=== PATIENT | male | born 1985 | race African-American/Black ===

== ENCOUNTER 2016-07-04 01:08 | Emergency (ER) | payer SELFPAY ==
[~2016-07-04] VITALS: Ht 180.3 cm; Wt 91.0 kg
[~2016-07-04 01:08] MED LIST: BACL10TA PO; DICL75 PO; NAPR550 PO
[2016-07-04 01:19] VITALS: BP 169/88; PULSE 66; RESP 18; TEMP 98.4; O2SAT 98
[2016-07-04] MEDS ORDERED: SODIUM CHLOR 0.9% 1000 ML INJ 1,000 ML IV SCH (01:23)
[2016-07-04] MEDS ORDERED: SODIUM CHLORIDE 0.9% FLUSH 5 ML FLUSH IVF PRN (01:30)
[2016-07-04 01:33] VITALS: O2SAT 99
[2016-07-04 01:54] LABS: BLOOD, URINE NEG (NEG); GLUCOSE,URINE NEG (NEG); KETONE, URINE NEG (NEG); NITRITE,URINE NEG (NEG); PH, URINE 6.5 (5.0-8.5); URINE COLOR COLORLESS (YELLW/STRAW)
[2016-07-04 01:56] LABS: AUTOMATED NEUTROPHIL # 3.1 TH/MM3 (1.8-7.7); BASOPHIL # 0.1 TH/MM3 (0-0.2); EOSINOPHIL # 0.1 TH/MM3 (0-0.4); EOSINOPHIL % 1.7 % (0.0-4.0); HEMO FLAGS DIFF FINAL; LYMPH % 40.1 % (9.0-44.0); LYMPHOCYTE # 2.6 TH/MM3 (1.0-4.8); MEAN CELL VOLUME 86.9 FL (80.0-100.0); MEAN CORPUSCULAR HEMOGLOBIN 29.3 PG (27.0-34.0); MEAN CORPUSCULAR HGB CONC 33.8 % (32.0-36.0); MONO % 9.3 % (0.0-8.0); NEUT % 47.9 % (16.0-70.0); PLATELET COUNT 242 TH/MM3 (150-450); RED BLOOD COUNT 4.37 MIL/MM3 (4.50-5.90); RED CELL DISTRIBUTION WIDTH 14.5 % (11.6-17.2); WHITE BLOOD COUNT 6.4 TH/MM3 (4.0-11.0)
[2016-07-04 02:01] LABS: AMPHETAMINE, URINE NEG (NEG); BARBITURATES, URINE NEG (NEG); COCAINE, URINE NEG (NEG)
[2016-07-04 02:33] LABS: ALKALINE PHOSPHATASE 50 U/L (45-117); ALT (GPT) 20 U/L (12-78); ANION GAP 8 MEQ/L (5-15); AST (GOT) 23 U/L (15-37); BICARBONATE 24.8 MEQ/L (21.0-32.0); BLOOD UREA NITROGEN 9 MG/DL (7-18); CHLORIDE 106 MEQ/L (98-107); CREATINE KINASE 263 U/L (39-308); GLOMERULAR FILTRATION RATE 119 ML/MIN (>89); SODIUM (NA) 139 MEQ/L (136-145); TOTAL BILIRUBIN ADULT 0.3 MG/DL (0.2-1.0)
[2016-07-04 02:37] LABS: POTASSIUM 3.9 MEQ/L (3.5-5.1)
[2016-07-04 02:39] LABS: COMMENT (UR) CULT NOT INDICATED; CULTURE IF INDICATED CULT NOT INDICATED
--- NOTE | 2016-07-04 02:44 | RADRPT ---
EXAM DATE/TIME: 07/04/2016 02:20 [place] COMPARISON: No previous studies available for comparison. INDICATIONS : Altered mental status. RADIATION DOSE: 40.21 CTDIvol (mGy) MEDICAL HISTORY : None SURGICAL HISTORY : None. ENCOUNTER: Initial ACUITY: 1 day PAIN SCALE: 0/10 LOCATION: cranial TECHNIQUE: Multiple contiguous axial images were obtained of the head. Using automated exposure control and adj ustment of the mA and/or kV according to patient size, radiation dose was kept as low as reasonably a chievable to obtain optimal diagnostic quality images. FINDINGS: CEREBRUM: The ventricles are normal for age. No evidence of midline shift, mass lesion, hemorrhage or acute in farction. No extra-axial fluid collections are seen. POSTERIOR FOSSA: The cerebellum and brainstem are intact. The 4th ventricle is midline. The cerebellopontine angle i s unremarkable. EXTRACRANIAL: The visualized portion of the orbits is intact. Subtle areas of nodular mucosal thickening in the ri ght maxillary sinus measure up to 1.2 cm. No air-fluid levels seen. SKULL: The calvaria is intact. No evidence of skull fracture. CONCLUSION: 1. Negative noncontrast CT of the brain. 2. Right maxillary sinus disease. Rigo Muir MD on July 04, 2016 at 2:42 Board Certified Radiologist. This report was verified electronically.
--- NOTE | 2016-07-04 02:56 | PD ---
HPI Chief Complaint: Altered Mental Status Time Seen by Provider: 01:11 Travel History International Travel<30 days: No Contact w/Intl Traveler<30days: No Traveled to known affect area: No History of Present Illness HPI The patient's 31 years old. He works in the mornings at [employer] and in the evenings [employer]. He has been doing this for a few months and has been surviving on a few hours of sleep only per night. While at work tonight which started a few hours prior to ER arrival he spoke very little with other coworkers and according to them was behaving somewhat bizarrely. The patient reports decreased oral hydration and oral intake generally. 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 He has no chest pain or shortness of breath. He's had no nausea or vomiting or fever. EMS reports normal vital signs on scene. His sister reports that he has a history of bipolar disorder. He has no suicidal or homicidal ideation verbalized to me. No new med. No Change in meds. PFS Past Medical History Anxiety: Yes Depression: Yes Medical other: Yes (chronic back pain) Social History Alcohol Use: No Tobacco Use: Yes (occasionally) Substance Use: Yes (marijuana) Allergies-Medications (Allergen,Severity, Reaction): Coded Allergies: No Known Allergies (Unverified , 07/04/16) Reported Meds & Prescriptions Reported Meds & Active Scripts Active No Active Prescriptions or Reported Medications Review of Systems Except as stated in HPI: all other systems reviewed are Neg Physical Exam Narrative GENERAL: 31 yo F, WNWD, NAD SKIN: Warm and dry. HEAD: Atraumatic. Normocephalic. EYES: Pupils equal and round. No scleral icterus. No injection or drainage. ENT: No nasal bleeding or discharge. Mucous membranes pink and moist. NECK: Trachea midline. No JVD. CARDIOVASCULAR: Regular rate and rhythm. No murmur appreciated. RESPIRATORY: No accessory muscle use. Clear to auscultation. Breath sounds equal bilaterally. GASTROINTESTINAL: Abdomen soft, non-tender, nondistended. Hepatic and splenic margins not palpable. MUSCULOSKELETAL: No obvious deformities. No clubbing. No cyanosis. No edema. NEUROLOGICAL: Awake and alert. No obvious cranial nerve deficits. Motor grossly within normal limits. Stuttering speech. No slurred speech. PSYCHIATRIC: Flat affect. Denies SI/HI. Data Data Last Documented VS Vital Signs Date Time Temp Pulse Resp B/P Pulse Ox O2 Delivery O2 Flow Rate FiO2 07/04/16 01:33 99 Room Air 07/04/16 01:19 98.4 66 18 169/88 Orders Electrocardiogram (07/04/16 01:23) Alcohol (Ethanol) (07/04/16 01:23) Complete Blood Count With Diff (07/04/16:23) Comprehensive Metabolic Panel (07/04/16:23) Creatine Kinase (Cpk) (07/04/16 01:23) Drug Screen, Random Urine (07/04/16:23) Thyroid Stimulating Hormone (07/04/16:23) Urinalysis - C+S If Indicated (07/04/16:23) Ct Brain W/O Iv Contrast(Rout) (07/04/16 01:23) Blood Glucose (07/04/16:23) Ecg Monitoring (07/04/16:23) Iv Access Insert/Monitor (07/04/16:23) Oximetry (07/04/16:23) Sodium Chloride 0.9% Flush (Ns Flush) (07/04/16 01:30) Sodium Chlor 0.9% 1000 Ml Inj (Ns 1000 M (07/04/16 01:23) Psych Screen (07/04/16 02:08) Labs Laboratory Tests Test 07/04/16 01:35 White Blood Count 6.4 TH/MM3 Red Blood Count 4.37 MIL/MM3 Hemoglobin 12.8 GM/DL Hematocrit 38.0 % Mean Corpuscular Volume 86.9 FL Mean Corpuscular Hemoglobin 29.3 PG Mean Corpuscular Hemoglobin 33.8 % Concent Red Cell Distribution Width 14.5 % Platelet Count 242 TH/MM3 Mean Platelet Volume 7.6 FL Neutrophils (%) (Auto) 47.9 % Lymphocytes (%) (Auto) 40.1 % Monocytes (%) (Auto) 9.3 % Eosinophils (%) (Auto) 1.7 % Basophils (%) (Auto) 1.0 % Neutrophils # (Auto) 3.1 TH/MM3 Lymphocytes # (Auto) 2.6 TH/MM3 Monocytes # (Auto) 0.6 TH/MM3 Eosinophils # (Auto) 0.1 TH/MM3 Basophils # (Auto) 0.1 TH/MM3 CBC Comment DIFF FINAL Differential Comment Urine Color COLORLESS Urine Turbidity CLEAR Urine pH 6.5 Urine Specific [place] 1.001 Urine Protein NEG mg/dL Urine Glucose (UA) NEG mg/dL Urine Ketones NEG mg/dL Urine Occult Blood NEG Urine Nitrite NEG Urine Bilirubin NEG Urine Urobilinogen LESS THAN 2.0 MG/DL Urine Leukocyte Esterase NEG Microscopic Urinalysis Comment CULT NOT INDICATED Sodium Level 139 MEQ/L Potassium Level 3.9 MEQ/L Chloride Level 106 MEQ/L Carbon Dioxide Level 24.8 MEQ/L Anion Gap 8 MEQ/L Blood Urea Nitrogen 9 MG/DL Creatinine 0.91 MG/DL Estimat Glomerular Filtration 119 ML/MIN Rate Random Glucose 89 MG/DL Calcium Level 8.6 MG/DL Total Bilirubin 0.3 MG/DL Aspartate Amino Transf 23 U/L (AST/SGOT) Alanine Aminotransferase 20 U/L (ALT/SGPT) Alkaline Phosphatase 50 U/L Total Creatine Kinase 263 U/L Total Protein 7.2 GM/DL Albumin 3.9 GM/DL Thyroid Stimulating Hormone 1.610 uIU/ML 3rd Gen Urine Opiates Screen NEG Urine Barbiturates Screen NEG Urine Amphetamines Screen NEG Urine Benzodiazepines Screen NEG Urine Cocaine Screen NEG Urine Cannabinoids Screen NEG Ethyl Alcohol Level LESS THAN 3 MG/DL MDM Medical Decision Making Medical Screen Exam Complete: Yes Emergency Medical Condition: Yes Medical Record Reviewed: Yes Differential Diagnosis Electrolyte imbalance, dehydration, polypharmacy, drug abuse, psychiatric disease, heat stroke, brain mass Narrative Course CBC & BMP Diagram 07/04/16 01:35 LFTs normal TSH 1.61 Tox screen negative EtOH < 3 UA: normal The patient is here voluntarily. The history of present illness, ROS, physical exam, review of records and medical workup performed for today's visit have reasonably safely excluded organic etiologies for the patient's presenting complaint. We will continue to monitor the patient carefully in the ER until time of evaluation by the psychiatry service. We are available for any additional medical assistance if needed during the patient's ER course. Disposition per discretion of psychiatry is appreciated. Diagnosis Primary Impression: Behavioral change Scripts No Active Prescriptions or Reported Meds Kwasi Lima MD Jul 04, 2016 02:55
[2016-07-04 04:18] VITALS: BP 137/73; PULSE 58; RESP 16; O2SAT 99
[2016-07-04 08:00] VITALS: BP 132/73
--- NOTE | 2016-07-04 14:36 | EKG ---
Date Performed: 07/04/2016 Time Performed: 01:43:19 PTAGE: 31 years EKG: Sinus rhythm NORMAL ECG PREVIOUS TRACING : 05/02/2014 10.19 Since previous tracing, no significant change noted DOCTOR: Enoc Lima Interpretating Date/Time 07/04/2016 14:34:42
== END 2016-07-04 07:51 | disposition home or self-care (01) ==
LOC: NEPC 01:08 → NEPA 07:51
DX: Z72.0 Tobacco use (principal); F80.9 Developmental disorder of speech and language, unspecified; G89.29 Other chronic pain; M54.9 Dorsalgia, unspecified
CPT/HCPCS: 70450; 80053; 80307; 80320; 81001; 82550; 84443; 85025; 93005; 96360; 96361; 99284; J7030

== ENCOUNTER 2017-03-04 10:40 | Emergency (ER) | payer SELFPAY ==
[~2017-03-04] VITALS: Ht 180.3 cm; Wt 86.0 kg
[2017-03-04 10:41] VITALS: BP 138/73; PULSE 73; RESP 16; TEMP 98.5; O2SAT 99
[2017-03-04] MEDS ORDERED: AZITHROMYCIN PWD FOR SUSP 1 GM PACKET PO ONE (11:15)
[2017-03-04] MEDS ORDERED: metroNIDAZOLE 500 MG TAB PO ONE (11:15)
[2017-03-04] MEDS ORDERED: LIDOCAINE HCL 1% 50 ML VIAL IM ONE (11:15)
[2017-03-04] MEDS ORDERED: cefTRIAXone 250 MG VIAL IM ONE (11:15)
--- NOTE | 2017-03-04 11:15 | PD ---
HPI Chief Complaint: Complaint Time Seen by Provider: 11:13 Travel History International Travel<30 days: No Contact w/Intl Traveler<30days: No Traveled to known affect area: No History of Present Illness HPI 31-year-old male presents to emergency Department with complaint of a creamy white drainage from his penis since Wednesday. Denies abdominal pain, fever, dysuria. Denies testicular pain or swelling. Unknown exposure to sexual transmitted infections. Has not taken any medications or tried any treatments to relieve his symptoms. Symptoms are mild in severity. Has no medical complaints. No known allergies. No other modifying factors or associated signs and symptoms. PFSH Past Medical History Anxiety: Yes Depression: Yes Social History Alcohol Use: No Tobacco Use: Yes (occasionally) Substance Use: No Allergies-Medications (Allergen,Severity, Reaction): Coded Allergies: No Known Allergies (Unverified , 03/04/17) Reported Meds & Prescriptions Reported Meds & Active Scripts Active No Active Prescriptions or Reported Medications Review of Systems Except as stated in HPI: all other systems reviewed are Neg Physical Exam Narrative GENERAL: Well-nourished, well-developed male patient, in no acute distress SKIN: Warm and dry. HEAD: Atraumatic. Normocephalic. EYES: Pupils equal and round. ENT: Mucosa pink and moist. NECK: Trachea midline. No lymphadenopathy. CARDIOVASCULAR: Regular rate. RESPIRATORY: No accessory muscle use. GASTROINTESTINAL: Flat. GENITOURINARY: Exam done in the presence of a nurse. Circumcised. Testes descended bilaterally without evidence of rotation. No lesions or erythema. Milky white urethral discharge. MUSCULOSKELETAL: No obvious deformities. No clubbing. No cyanosis. No edema. NEUROLOGICAL: Awake and alert. Oriented 3. No obvious cranial nerve deficits. Motor grossly within normal limits. Normal speech. Moves all extremities. 5/5 strength to all extremities. PSYCHIATRIC: Appropriate mood and affect; insight and judgment normal. Data Data Last Documented VS Vital Signs Date Time Temp Pulse Resp B/P (MAP) Pulse Ox O2 Delivery O2 Flow Rate FiO2 03/04/17 10:41 98.5 73 16 138/73 (94) 99 Room Air Orders Orders Gc And Chlamydia Pcr (03/04/17 11:04) Azithromycin Powd Pack (Zithromax Powd P (03/04/17 11:15) Ceftriaxone Inj (Rocephin Inj) (03/04/17 11:15) Lidocaine 1% Inj (50 Ml) (Xylocaine 1% I (03/04/17 11:15) Metronidazole (Flagyl) (03/04/17 11:15) [facility] Medical Decision Making Medical Screen Exam Complete: Yes Emergency Medical Condition: Yes Medical Record Reviewed: Yes Differential Diagnosis Chlamydia, gonorrhea, Trichomonas Narrative Course 31-year-old male physical exam consistent with urethritis. Patient empirically treated with azithromycin, Flagyl, Rocephin. Gonorrhea pending. Instructed patient to inform previous sexual contacts and for them to be treated. Instructed patient to follow up with primary care provider. Patient verbalizes understanding and agreement with treatment plan. Patient is medically cleared and stable for discharge. Discussed reasons to return to the emergency department. Patient agrees with treatment plan. The patients vital signs are stable and the patient is stable for outpatient follow-up and treatment. Patient discharged home, stable and in no acute distress. Diagnosis Primary Impression: Urethritis Ref[facility]: [facility] Patient Instructions: Chlamydia (ED), Condom Use (ED), General Instructions, Gonorrhea (ED), Safe Sex (ED), Sexually Transmitted Diseases (ED) Additional Instructions: Avoid sexual activity until you follow up with her primary care provider Inform all sexual partners within the past 3-6 months that they need to be evaluated and treated Use condoms every time you have sex Follow-up with primary care provider Follow up with health department for full STD panel and screening Return to the emergency department immediately with worsening of symptoms Med/Other Pt SpecificInfo: No Meds Exist/No RX given Scripts No Active Prescriptions or Reported Meds Disposition: 01 DISCHARGE HOME Condition: Stable Merry Munguia Mar 04, 2017 11:15
[2017-03-04 14:00] LABS: CHLAMYDIA PCR DETECTED (NOT DETECT); NEISSERIA PCR DETECTED (NOT DETECT)
== END 2017-03-04 12:02 | disposition home or self-care (01) ==
LOC: NEPK 10:40
DX: N34.2 Other urethritis (principal); Z72.0 Tobacco use; Z86.59 Personal history of other mental and behavioral disorders
CPT/HCPCS: 87491; 87591; 96372; 99284; J0696